=== PATIENT | female | born 1975 | race American Indian/Alaskan Native ===

== ENCOUNTER 2018-10-02 10:12 | Emergency (ER) | payer SELFPAY ==
[2018-10-02 10:44] VITALS: BP 151/92
[2018-10-02] MEDS ORDERED: NORCO 5/325 PO ONE (13:23)
--- NOTE | 2018-10-02 13:28 | Emergency Department Report ---
ED Laceration HPI - HPI Chief Complaint: Laceration/Recheck/Suture Stated Complaint: RT INDEX FINGER INJURY Time Seen by Provider: 10/02/18 12:19 Occurred When: Yesterday Location: Upper Extremity Severity: mild Tetanus Status: Up to Date Laceration Symptoms: Yes Pain, No Foreign Body Sensation, No Numbness, No Weakness Other History: 43-year-old -[place] female comes in with a laceration over her right second digit. It is sitting at the distal PIP. She did this yesterday on a piece a gas glass. She is neurologically intact. Rapid cap refill. Tetanus is up-to-date. ED Review of Systems ROS: Stated complaint: RT INDEX FINGER INJURY Other details as noted in HPI Comment: All other systems reviewed and negative Constitutional: denies: chills Eyes: denies: eye pain ENT: denies: ear pain Respiratory: denies: cough Cardiovascular: denies: chest pain Endocrine: denies: see HPI Gastrointestinal: denies: nausea Genitourinary: denies: as per HPI Musculoskeletal: as per HPI, other (finger lac) Skin: denies: lesions Neurological: denies: weakness Psychiatric: denies: depression Hematological/Lymphatic: denies: easy bleeding ED Past Medical Hx - Past Medical History Previous Medical History?: No - Surgical History Additional Surgical History: c sect x 4, right foot, partial hysterectomy - Social History Smoking Status: Never Smoker Substance Use Type: Alcohol Laceration Physical Exam - Exam General: Vital signs noted. No distress. Alert and acting appropriately. Laceration Location: Upper Extremity Laceration Exam: Yes Normal Distal CMS, No Foreign Body, No Exposed Tendon, Vessel, or Nerve, No Tendon Injury ED Course Vital Signs 10/02/18 10:41 Temperature 97.6 F Pulse Rate 74 Respiratory 16 Rate Blood Pressure 151/92 [Right] O2 Sat by Pulse 97 Oximetry ED Medical Decision Making - Medical Decision Making no fb clean no sutures needed wound care given closure obtained with dermabond and steri strips tdap is utd med for pain dc instructions reviewed - Differential Diagnosis lac Critical care attestation.: If time is entered above; I have spent that time in minutes in the direct care of this critically ill patient, excluding procedure time. ED Disposition Clinical Impression: Laceration Disposition: DC-01 TO HOME OR SELFCARE Is pt being admited?: No Does the pt Need Aspirin: No Condition: Stable Instructions: Laceration (ED) Additional Instructions: ice rest splint for 5 days motrin for pain diet as tolerated do not get finger wet until the wound heals Referrals: DAMARIS COOPER MD [Primary Care Provider] - 3-5 Days Time of Disposition: 13:33
[2018-10-02] MEDS ORDERED: NACL 0.9% IR ONE (14:00)
== END 2018-10-02 14:01 | disposition home or self-care (01) ==
LOC: ED 10:12
DX: S61.210A Laceration without foreign body of right index finger without damage to nail, initial encounter (principal); W25.XXXA Contact with sharp glass, initial encounter; Y93.89 Activity, other specified; Y99.8 Other external cause status; Y92.89 Other specified places as the place of occurrence of the external cause
CPT/HCPCS: 99282

== ENCOUNTER 2019-07-19 10:52 | Emergency (ER) | payer SELFPAY ==
[2019-07-19 11:02] VITALS: BP 169/108
== END 2019-07-19 13:00 | disposition left against medical advice (07) ==
LOC: ED 10:52
DX: I10 Essential (primary) hypertension (principal); Z53.21 Procedure and treatment not carried out due to patient leaving prior to being seen by health care provider

== ENCOUNTER 2021-11-21 06:37 | Emergency (ER) | payer SELFPAY ==
[2021-11-21] MEDS ORDERED: ASPIRIN 325 MG TAB PO ONE (07:23)
[2021-11-21] MEDS ORDERED: KETOROLAC 30 MG/1 ML INJ IV ONE (07:59)
[2021-11-21] MEDS ORDERED: hydroCHLOROthiazide 25 MG TAB PO ONE (08:01)
[2021-11-21] MEDS ORDERED: LISINOPRIL 20 MG TAB PO ONE (08:01)
--- NOTE | 2021-11-21 08:02 | XRay Report ---
CHEST 2 VIEWS, 11/21/2021 INDICATION: Chest pain COMPARISON: None FINDINGS: Support devices: None. Heart: The cardiac silhouette is normal in size. Lungs/pleura: Diffuse mildly prominent interstitial markings are noted bilaterally. There is no focal consolidation or pleural effusion. Additional findings: No significant acute abnormality. IMPRESSION: 1. Diffuse mildly prominent interstitial markings representing a nonspecific finding. Infectious or i nflammatory process should be considered. Mild vascular congestion could have a similar appearance. Signer Name: Ann Griffin MD Signed: 11/21/2021 7:58 AM Workstation Name: [id number]
--- NOTE | 2021-11-21 08:06 | Emergency Department Report ---
ED Chest Pain HPI - General Chief Complaint: Chest Pain Stated Complaint: CHEST PAIN Time Seen by Provider: 11/21/21 07:41 Source: patient Mode of arrival: Stretcher Limitations: No Limitations - History of Present Illness Initial Comments: 46-year-old female presents to the hospital complaining of elevated blood pressure, left neck pain, left shoulder pain, left arm pain with movement and palpation for the last 2 to 3 days. Pain is moderate to severe in intensity. No trauma, injury, or fever. Patient is right-hand dominant. Patient noticed that her blood pressure is also been uncontrolled during this time and thought that it might be the cause of her symptoms. She has been taking nitroglycerin intermittently with reduction in her blood pressure however, pain persists. Patient denies weakness, numbness, or lower extremity symptoms. She also has intermittent left parasternal chest pain worse with movement and certain directions. No calf tenderness no complaints of calf tenderness or leg edema. History negative stress test approximately 4 years ago. No previous cath. Patient was a previously heavy drinker and a smoker. She quit smoking and drinking 2 weeks ago Patient's medications include lisinopril 40 mg daily Hydrochlorothiazide 25 mg daily Prozac 60 mg every morning Seroquel 100 mg daily Hydroxyzine 25 mg as needed anxiety - Related Data Previous Rx's Medication Instructions Recorded Last Taken Type Amlodipine Besylate [Norvasc] 5 mg PO DAILY #30 tab 11/21/21 Unknown Rx Cyclobenzaprine [Flexeril] 10 mg PO TID PRN #20 11/21/21 Unknown Rx Ibuprofen [Motrin] 800 mg PO Q8HR PRN #30 tablet 11/21/21 Unknown Rx Allergies Allergy/AdvReac Type Severity Reaction Status Date / Time No Known Allergies Allergy Unverified 10/02/18 10:41 Heart Score - HEART Score History: Slightly suspicious EKG: Non-specific Age: 45-65 Risk factors: 1-2 risk factors Troponin: < normal limit HEART Score: 3 - EKG Read Time Time EKG Completed: 07:12 EKG Read Time: 07:15 ED Review of Systems ROS: Stated complaint: CHEST PAIN Other details as noted in HPI ED Past Medical Hx - Past Medical History Previous Medical History?: Yes Hx Hypertension: Yes Hx Psychiatric Treatment: Yes (PTSD) - Surgical History Past Surgical History?: Yes Additional Surgical History: c sect x 4, right foot, partial hysterectomy - Social History Smoking Status: Current Every Day Smoker Substance Use Type: None - Medications Home Medications: Home Medications Medication Instructions Recorded Confirmed Last Taken Type Amlodipine Besylate [Norvasc] 5 mg PO DAILY #30 tab 11/21/21 Unknown Rx Cyclobenzaprine [Flexeril] 10 mg PO TID PRN #20 11/21/21 Unknown Rx Ibuprofen [Motrin] 800 mg PO Q8HR PRN #30 tablet 11/21/21 Unknown Rx ED Physical Exam - General Limitations: No Limitations - Other Other exam information: General: No acute distress Head: Atraumatic Eyes: normal appearance ENT: Moist mucous membranes Neck: Normal appearance, no midline tenderness, left-sided trapezius muscle tenderness from the base of the neck extending to the shoulder. Chest: Clear to auscultation bilaterally CV: Regular rate and rhythm Abdomen: Soft, normal bowel sounds, nontender, nondistended, no rebound or guarding Back: Normal inspection Extremity: Normal inspection, full range of motion with passive movement. Pain with movement of shoulder. No deformity, warmth, erythema. Mild popping sound intimately with movement Neuro: Alert O x 3, no facial asymmetry, speech clear, no gross motor sensory deficit Psych: Appropriate behavior Skin: No rash ED Course Vital Signs 11/21/21 11/21/21 11/21/21 07:12 07:27 08:02 Temperature 98 F Pulse Rate 60 57 L 54 L Respiratory 18 16 Rate Blood Pressure 159/106 Blood Pressure 154/102 [Left] O2 Sat by Pulse 98 99 Oximetry 11/21/21 11/21/21 11/21/21 09:12 10:17 11:59 Temperature Pulse Rate 56 L 68 Respiratory 16 Rate Blood Pressure Blood Pressure 175/106 168/109 [Left] O2 Sat by Pulse 100 100 Oximetry HANNAH score - Hannah Score Age > 65: (0) No Aspirin use within the Past 7 Days: (1) Yes 3 or more CAD Risk Factors: (1) Yes 2 or more Angina events in past 24 hrs: (0) No Known CAD with more than 50% Stenosis: (0) No Elevated Cardiac Markers: (0) No ST Deviation Greater than 0.5mm: (0) No HANNAH Score: 2 ED Medical Decision Making - Lab Data Result diagrams: 11/21/21 08:02 11/21/21 08:01 Lab Results 11/21/21 11/21/21 11/21/21 Range/Units 08:01 08:02 09:34 WBC 9.6 (4.5-11.0) K/mm3 RBC 4.41 (3.65-5.03) M/mm3 Hgb 13.2 (10.1-14.3) gm/dl Hct 38.8 (30.3-42.9) % MCV 88 (79-97) fl MCH 30 (28-32) pg MCHC 34 (30-34) % RDW 13.6 (13.2-15.2) % Plt Count 311 (140-440) K/mm3 Lymph % (Auto) 33.0 (13.4-35.0) % Mcculloch % (Auto) 7.2 (0.0-7.3) % Eos % (Auto) 1.9 (0.0-4.3) % Baso % (Auto) 0.6 (0.0-1.8) % Lymph # (Auto) 3.2 (1.2-5.4) K/mm3 Mcculloch # (Auto) 0.7 (0.0-0.8) K/mm3 Eos # (Auto) 0.2 (0.0-0.4) K/mm3 Baso # (Auto) 0.1 (0.0-0.1) K/mm3 Seg Neutrophils % 57.3 (40.0-70.0) % Seg Neutrophils # 5.5 (1.8-7.7) K/mm3 D-Dimer 135.19 (0-234) ng/mlDDU Sodium 137 (137-145) mmol/L Potassium 4.4 (3.6-5.0) mmol/L Chloride 104.2 (98-107) mmol/L Carbon Dioxide 21 L (22-30) mmol/L Anion Gap 16 mmol/L BUN 21 H (7-17) mg/dL Creatinine 1.0 (0.6-1.2) mg/dL Estimated GFR > 60 ml/min BUN/Creatinine Ratio 21 % Glucose 96 (65-100) mg/dL Calcium 9.0 (8.4-10.2) mg/dL Total Bilirubin 0.30 (0.1-1.2) mg/dL AST 17 (5-40) units/L ALT 12 (7-56) units/L Alkaline Phosphatase 96 (35-129) units/L Troponin T < 0.010 (0.00-0.029) ng/mL NT-Pro-B Natriuret Pep 82.43 (0-450) pg/mL Total Protein 6.7 (6.3-8.2) g/dL Albumin 4.1 (3.9-5) g/dL Albumin/Globulin Ratio 1.6 % 11/21/21 Range/Units 11:38 WBC (4.5-11.0) K/mm3 RBC (3.65-5.03) M/mm3 Hgb (10.1-14.3) gm/dl Hct (30.3-42.9) % MCV (79-97) fl MCH (28-32) pg MCHC (30-34) % RDW (13.2-15.2) % Plt Count (140-440) K/mm3 Lymph % (Auto) (13.4-35.0) % Mcculloch % (Auto) (0.0-7.3) % Eos % (Auto) (0.0-4.3) % Baso % (Auto) (0.0-1.8) % Lymph # (Auto) (1.2-5.4) K/mm3 Mcculloch # (Auto) (0.0-0.8) K/mm3 Eos # (Auto) (0.0-0.4) K/mm3 Baso # (Auto) (0.0-0.1) K/mm3 Seg Neutrophils % (40.0-70.0) % Seg Neutrophils # (1.8-7.7) K/mm3 D-Dimer (0-234) ng/mlDDU Sodium (137-145) mmol/L Potassium (3.6-5.0) mmol/L Chloride (98-107) mmol/L Carbon Dioxide (22-30) mmol/L Anion Gap mmol/L BUN (7-17) mg/dL Creatinine (0.6-1.2) mg/dL Estimated GFR ml/min BUN/Creatinine Ratio % Glucose (65-100) mg/dL Calcium (8.4-10.2) mg/dL Total Bilirubin (0.1-1.2) mg/dL AST (5-40) units/L ALT (7-56) units/L Alkaline Phosphatase (35-129) units/L Troponin T < 0.010 (0.00-0.029) ng/mL NT-Pro-B Natriuret Pep (0-450) pg/mL Total Protein (6.3-8.2) g/dL Albumin (3.9-5) g/dL Albumin/Globulin Ratio % - EKG Data -: 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 Heart: The cardiac silhouette is normal in size. Lungs/pleura: Diffuse mildly prominent interstitial markings are noted bilaterally. There is no focal consolidation or pleural effusion. Additional findings: No significant acute abnormality. IMPRESSION: 1. Diffuse mildly prominent interstitial markings representing a nonspecific finding. Infectious or inflammatory process should be considered. Mild vascular congestion could have a similar appearance. - Medical Decision Making 46-year-old female presents to the hospital left shoulder pain which appears to be musculoskeletal in origin. Patient does not have associated cardiac symptoms, has EKG without signs of ischemia, troponin negative x2. Patient also presents with significantly elevated blood pressure despite medication compli ance. Low suspicion for dissection/PE given lack of pain radiation to the back, no widening of mediastinum on x-ray, and normal D-dimer. Patient denies trauma and has full passive range of motion of the left shoulder therefore fracture not suspected. I suspect arthritis versus inflammatory cause of left shoulder pain without signs of infection, leukocytosis, warmth, or fever. Patient treated symptomatically for pain with NSAIDs and morphine. Patient BP remain elevated despite her a.m. meds therefore Norvasc was added with some mild improvement. Critical Care Time: No Critical care attestation.: If time is entered above; I have spent that time in minutes in the direct care of this critically ill patient, excluding procedure time. ED Disposition Clinical Impression: Uncontrolled hypertension, Left shoulder pain, Strain of left trapezius muscle, Headache Disposition: HOME / SELF CARE / HOMELESS Is pt being admited?: No Does the pt Need Aspirin: No Condition: Stable Instructions: Hypertension (ED), Musculoskeletal Pain, Shoulder Pain, [id number], Managing Your Hypertension Additional Instructions: Take the medication as prescribed. Follow-up with your doctor or doctor/clinic provided. Return if symptoms worsen as indicated by your discharge instructions. Prescriptions: Cyclobenzaprine [Flexeril] 10 mg PO TID PRN #20 PRN Reason: Muscle Spasm Ibuprofen [Motrin] 800 mg PO Q8HR PRN #30 tablet PRN Reason: Pain , Severe (7-10) Amlodipine Besylate [Norvasc] 5 mg PO DAILY #30 tab Referrals: PRIMARY CARE, [Primary Care Provider] - 3-5 Days SANCHO AVIELZ MD [Staff Physician] - 3-5 Days (orthopedic ) Time of Disposition: 13:46
[2021-11-21 08:35] LABS: Basophils # (Auto) 0.1 K/mm3 (0.0-0.1); Basophils % (Auto) 0.6 % (0.0-1.8); Eosinophils # (Auto) 0.2 K/mm3 (0.0-0.4); Eosinophils % (Auto) 1.9 % (0.0-4.3); Hematocrit 38.8 % (30.3-42.9); Hemoglobin 13.2 gm/dl (10.1-14.3); Lymphocytes # (Auto) 3.2 K/mm3 (1.2-5.4); Mean Corpuscular HGB Conc 34 % (30-34); Mean Corpuscular Volume 88 fl (79-97); Monocytes # (Auto) 0.7 K/mm3 (0.0-0.8); Monocytes % (Auto) 7.2 % (0.0-7.3); Platelet Count 311 K/mm3 (140-440); Red Blood Count 4.41 M/mm3 (3.65-5.03); Red Cell Distribution Width 13.6 % (13.2-15.2)
[2021-11-21 08:53] LABS: Alanine Aminotransferase 12 units/L (7-56); Albumin 4.1 g/dL (3.9-5); BUN/Creatinine Ratio 21; Blood Urea Nitrogen 21 mg/dL (7-17); Hemolysis Index 51
[2021-11-21] MEDS ORDERED: MORPHINE 4 MG/1 ML INJ IV ONE (10:34)
[2021-11-21] MEDS ORDERED: ONDANSETRON 4 MG/2 ML INJ IV ONE (10:34)
--- NOTE | 2021-11-21 11:49 | Cat Scan Report ---
CT head/brain wo con INDICATION / CLINICAL INFORMATION: 46 years Female; headache, htn. TECHNIQUE: Routine CT head without contrast. All CT scans at this location are performed using CT dos e reduction for ALARA by means of automated exposure control. COMPARISON: None. FINDINGS: BRAIN / INTRACRANIAL CONTENTS: No acute hemorrhage, mass effect, midline shift, hydrocephalus, or acu te, large territorial infarct. No signs of significant atrophy or chronic infarct. No significant whi te matter abnormality seen. CRANIOCERVICAL JUNCTION: No significant abnormality. ORBITS: No significant abnormality of visualized orbits. SINUSES / MASTOIDS: Visualized paranasal sinuses and mastoid air cells are essentially clear. ADDITIONAL FINDINGS: None. IMPRESSION: 1. No focal mass, hemorrhage, hydrocephalus, or acute, large territorial infarct. Signer Name: Tristan Dickson MD, III Signed: 11/21/2021 11:45 AM Workstation Name: [email or web address]
[2021-11-21] MEDS ORDERED: amLODIPine 5 MG TAB PO ONE (12:02)
[2021-11-21 14:05] VITALS: BP 156/100
--- NOTE | 2021-11-22 09:01 | Electrocardiograph Report ---
[facility] Test Date: 2021-11-21 Test Time: 07:12:16 Pat Name: ARCELIA BERRIOS Department: Room: Gender: F Night Filler: FRANCO : 1975 Requested By: ED DOC Order Number: [id number] Reading MD: Ilir Villarreal Measurements Intervals [place] Rate: 57 P: 34 ID: [id number] QRS: 24 QRSD: 82 T: 36 QT: 466 QTc: 453 Interpretive Statements Sinus bradycardia POSSIBLE Anterior infarct, old No previous ECG available for comparison Electronically Signed On 11-22-2021 9:01:47 EDT by Ilir Villarreal
== END 2021-11-21 14:04 | disposition home or self-care (01) ==
LOC: ED 06:37
DX: S46.812A Strain of other muscles, fascia and tendons at shoulder and upper arm level, left arm, initial encounter (principal); I10 Essential (primary) hypertension; F17.200 Nicotine dependence, unspecified, uncomplicated; R51.9 Headache, unspecified; Z79.899 Other long term (current) drug therapy; X58.XXXA Exposure to other specified factors, initial encounter; Y93.89 Activity, other specified; Y92.89 Other specified places as the place of occurrence of the external cause; Y99.8 Other external cause status
CPT/HCPCS: 36415; 70450; 71046; 80053; 83880; 84484; 85025; 85379; 93005; 96374; 96375; 99285; J1885; J2270; J2405

== ENCOUNTER 2022-03-19 14:06 | Emergency (ER) | payer SELFPAY ==
[2022-03-19] MEDS ORDERED: ACETAMINOPHEN 325 MG TAB PO ONE (15:47)
[2022-03-19 16:35] LABS: Hematocrit 40.4 % (30.3-42.9); Hemoglobin 13.9 gm/dl (10.1-14.3); Mean Corpuscular HGB Conc 34 % (30-34); Mean Corpuscular Volume 89 fl (79-97); Platelet Count 279 K/mm3 (140-440); Red Blood Count 4.52 M/mm3 (3.65-5.03); Red Cell Distribution Width 13.7 % (13.2-15.2)
[2022-03-19 16:56] LABS: Alanine Aminotransferase 17 units/L (7-56); Albumin 4.1 g/dL (3.9-5); BUN/Creatinine Ratio 11; Blood Urea Nitrogen 10 mg/dL (7-17); Calcium 9.3 mg/dL (8.4-10.2); Hemolysis Index 125
[2022-03-19 18:06] LABS: Band Neutrophils # (Manual) 0.2 K/mm3; Basophils % (Manual) 0 % (0.0-1.8); Eosinophils % (Manual) 0 % (0.0-4.3); Total Cells Counted 100
[2022-03-19 18:07] LABS: Large Platelets Few; Platelet Estimate Consistent w Auto
[2022-03-20] MEDS ORDERED: ONDANSETRON 4 MG/2 ML INJ IV ONE (02:19)
[2022-03-20] MEDS ORDERED: SODIUM CHLORIDE 0.9% 1000 ML 1,000 ML IV ONE (02:19)
[2022-03-20] MEDS ORDERED: KETOROLAC 30 MG/1 ML INJ IV ONE (02:19)
--- NOTE | 2022-03-20 02:25 | Emergency Department Report ---
ED Abdominal Pain HPI - General Chief Complaint: Abdominal Pain Stated Complaint: KIDNEY STONE/FEVER/VOMITING Time Seen by Provider: 03/20/22 02:04 Source: patient Mode of arrival: Ambulatory Limitations: No Limitations - History of Present Illness Initial Comments: 46-year-old female with a history of kidney stone who presents with left flank pain that started about 2 to 3 days ago progressively getting worse. Patient denies any fever or chills. Patient also mention nausea and nonbloody emesis for the last 2 days. She says she cannot tolerate any fluid or food. Patient have had total hysterectomy. No other modifying or associated factors reported. MD Complaint: flank pain Severity scale (0 -10): 7 - Related Data Previous Rx's Medication Instructions Recorded Last Taken Type Amlodipine Besylate [Norvasc] 5 mg PO DAILY #30 tab 11/21/21 Unknown Rx Cyclobenzaprine [Flexeril] 10 mg PO TID PRN #20 11/21/21 Unknown Rx Ibuprofen [Motrin] 800 mg PO Q8HR PRN #30 tablet 11/21/21 Unknown Rx Ketorolac [Toradol] 10 mg PO Q4HR PRN 6 Days #24 03/20/22 Unknown Rx tablet NS Ondansetron (Nf) [Zofran TAB] 8 mg PO Q8HR PRN 5 Days #15 tablet 03/20/22 Unknown Rx NS cephALEXin [Keflex] 500 mg PO Q12HR 10 Days #20 cap NS 03/20/22 Unknown Rx Allergies Allergy/AdvReac Type Severity Reaction Status Date / Time No Known Allergies Allergy Verified 03/20/22 02:06 ED Review of Systems ROS: Stated complaint: KIDNEY STONE/FEVER/VOMITING Other details as noted in HPI Comment: All other systems reviewed and negative Gastrointestinal: abdominal pain, nausea, vomiting, other (left flank pain ) ED Past Medical Hx - Past Medical History Previous Medical History?: Yes Hx Hypertension: Yes Hx Psychiatric Treatment: Yes (PTSD) - Surgical History Additional Surgical History: c sect x 4, right foot, partial hysterectomy - Social History Smoking Status: Current Every Day Smoker Substance Use Type: None - Medications Home Medications: Home Medications Medication Instructions Recorded Confirmed Last Taken Type Amlodipine Besylate [Norvasc] 5 mg PO DAILY #30 tab 11/21/21 Unknown Rx Cyclobenzaprine [Flexeril] 10 mg PO TID PRN #20 11/21/21 Unknown Rx Ibuprofen [Motrin] 800 mg PO Q8HR PRN #30 tablet 11/21/21 Unknown Rx Ketorolac [Toradol] 10 mg PO Q4HR PRN 6 Days #24 03/20/22 Unknown Rx tablet NS Ondansetron (Nf) [Zofran TAB] 8 mg PO Q8HR PRN 5 Days #15 tablet 03/20/22 Unknown Rx NS cephALEXin [Keflex] 500 mg PO Q12HR 10 Days #20 cap NS 03/20/22 Unknown Rx ED Physical Exam - General Limitations: No Limitations General appearance: alert, in no apparent distress - Head Head exam: Present: normal inspection - Eye Eye exam: Present: normal appearance Pupils: Present: normal accommodation - ENT ENT exam: Present: normal exam, normal orophraynx, mucous membranes dry - Neck Neck exam: Present: normal inspection, full ROM. Absent: tenderness - Respiratory Respiratory exam: Present: normal lung sounds bilaterally. Absent: respiratory distress, accessory muscle use - Cardiovascular Cardiovascular Exam: Present: regular rate, normal rhythm, normal heart sounds - GI/Abdominal GI/Abdominal exam: Present: soft, tenderness (left lower abdomen ), normal bowel sounds. Absent: distended - Extremities Exam Extremities exam: Present: normal inspection, normal capillary refill. Absent: pedal edema - Back Exam Back exam: Present: normal inspection, tenderness (left flank ), CVA tenderness (L) - Neurological Exam Neurological exam: Present: alert, oriented X3 - Psychiatric Psychiatric exam: Present: normal affect, normal mood - Skin Skin exam: Present: warm, normal color ED Course Vital Signs 03/19/22 03/20/22 03/20/22 14:10 01:15 03:00 Temperature 98.9 F 98.7 F Pulse Rate 109 H 83 Respiratory 18 22 18 Rate Blood Pressure 174/116 131/52 [Left] O2 Sat by Pulse 99 98 Oximetry 03/20/22 03:07 Temperature Pulse Rate Respiratory 18 Rate Blood Pressure [Left] O2 Sat by Pulse Oximetry ED Medical Decision Making - Lab Data Result diagrams: 03/19/22 16:16 03/19/22 16:16 - Radiology Data FINDINGS: LOWER CHEST: Bibasilar atelectasis is seen without other significant abnormalities. LIVER: No significant abnormality. GALLBLADDER: No significant abnormality. BILE DUCTS: No significant abnormality. PANCREAS: No significant abnormality. SPLEEN: No significant abnormality. ADRENALS: No significant abnormality. RIGHT KIDNEY/URETER: No significant abnormality. LEFT KIDNEY/URETER: Multiple nonobstructive stones are seen along the upper pole measuring up to 1.7 cm. No ureteral stones or other significant abnormalities. A probable phlebolith is seen in close proximity to the distal third of the left ureter on image 122 of series 2. There is mild left perinephric fat stranding. No other significant abnormality. STOMACH/SMALL BOWEL: No significant abnormality. COLON: No significant abnormality. APPENDIX: No significant abnormality. PERITONEUM: No free fluid. No free air. No fluid collection. LYMPH NODES: No significant adenopathy. VASCULATURE: There is mild atherosclerosis without other significant abnormalities. URINARY BLADDER: No significant abnormality. REPRODUCTIVE ORGANS: No significant abnormality. ADDITIONAL FINDINGS: None. BONES: No significant abnormality IMPRESSION: 1. Nonobstructive left renal stones with nonspecific mild left perinephric fat stranding. 2. Additional findings as above. - Medical Decision Making Here with left flank pain that started 2 to 3 days ago progressively getting worse--with this patient history of renal calculi this is likely an episode however could not rule out any other intra-abdominal inflammation or infection such as appendicitis, gastroenteritis, diverticulosis versus diverticulitis, ovarian cyst, or urinary tract infection. And because of this we will go ahead and order routine labs including CBC, CMP, UA, with lipase and get a CT scan of the abdomen/pelvic without contrast to rule out all of the above. In the meantime will give Toradol 30 mg IV x 1 and ivf ns 1L bolus x 1 with zofran 4 mg IV x 1 for symptomatic relief -- UA shows positive urine leukocytes with nitrites -- consistent with UTI-- will d/c home on keflex x 10 days Critical care attestation.: If time is entered above; I have spent that time in minutes in the direct care of this critically ill patient, excluding procedure time. ED Disposition Clinical Impression: Acute left flank pain, Renal calculus, left UTI (urinary tract infection) Qualifiers: Urinary tract infection type: site unspecified Hematuria presence: without hematuria Qualified Code(s): N39.0 - Urinary tract infection, site not specified Disposition: 01 HOME / SELF CARE / HOMELESS Is pt being admited?: No Does the pt Need Aspirin: No Condition: Stable Instructions: Kidney Stones, [id number], Flank Pain, Adult, [id number], Abdominal Pain (ED), Urinary Tract Infection, Adult, [id number] Additional Instructions: Take your pain medication and antibiotics as prescribed Increase your daily fluid to help your hydration Call and follow up with your doctor in the next 3-5 days for progress Please do not hesitate to call or return to ED if your symptoms worsen Prescriptions: cephALEXin [Keflex] 500 mg PO Q12HR 10 Days #20 cap NS Ketorolac [Toradol] 10 mg PO Q4HR PRN 6 Days #24 tablet NS PRN Reason: Pain Ondansetron (Nf) [Zofran TAB] 8 mg PO Q8HR PRN 5 Days #15 tablet NS PRN Reason: Nausea Referrals: UMM ROBERTS MD [Primary Care Provider] - 3-5 Days Time of Disposition: 04:01
--- NOTE | 2022-03-20 03:08 | Cat Scan Report ---
CT ABDOMEN AND PELVIS WITHOUT CONTRAST INDICATION / CLINICAL INFORMATION: left flank with h/o renal calculus. TECHNIQUE: Axial CT images were obtained through the abdomen and pelvis without IV contrast. All CT scans at [facility] location are performed using CT dose reduction for ALARA by means of automated exposure control. COMPARISON: None available. FINDINGS: LOWER CHEST: Bibasilar atelectasis is seen without other significant abnormalities. LIVER: No significant abnormality. GALLBLADDER: No significant abnormality. BILE DUCTS: No significant abnormality. PANCREAS: No significant abnormality. SPLEEN: No significant abnormality. ADRENALS: No significant abnormality. RIGHT KIDNEY/URETER: No significant abnormality. LEFT KIDNEY/URETER: Multiple nonobstructive stones are seen along the upper pole measuring up to 1.7 cm. No ureteral stones or other significant abnormalities. A probable phlebolith is seen in close pro ximity to the distal third of the left ureter on image 122 of series 2. There is mild left perinephri c fat stranding. No other significant abnormality. STOMACH/SMALL BOWEL: No significant abnormality. COLON: No significant abnormality. APPENDIX: No significant abnormality. PERITONEUM: No free fluid. No free air. No fluid collection. LYMPH NODES: No significant adenopathy. VASCULATURE: There is mild atherosclerosis without other significant abnormalities. URINARY BLADDER: No significant abnormality. REPRODUCTIVE ORGANS: No significant abnormality. ADDITIONAL FINDINGS: None. BONES: No significant abnormality IMPRESSION: 1. Nonobstructive left renal stones with nonspecific mild left perinephric fat stranding. 2. Additional findings as above. Signer Name: Mark Caceres MD Signed: 03/20/2022 3:04 AM Workstation Name: [id number]
[2022-03-20 04:37] LABS: Bacteria,Urine 3+ /HPF (Negative); Mucus,Urine FEW /HPF
[2022-03-20 04:39] LABS: Color,Urine Yellow (Yellow); WBC,Urine > 182.0 /HPF (0.0-6.0)
[2022-03-20 04:40] LABS: Bilirubin,Urine Negative (Negative); Blood,Urine Large (Negative); Protein,Urine 300 mg/dL mg/dL (Negative)
[2022-03-20 06:25] VITALS: BP 107/53
== END 2022-03-20 05:40 | disposition home or self-care (01) ==
LOC: ED 14:06
DX: N39.0 Urinary tract infection, site not specified (principal); R10.9 Unspecified abdominal pain; N20.0 Calculus of kidney; I10 Essential (primary) hypertension; F17.200 Nicotine dependence, unspecified, uncomplicated; Z79.899 Other long term (current) drug therapy
CPT/HCPCS: 36415; 74176; 80053; 81001; 83690; 85007; 85025; 96361; 96374; 96375; 99284; J1885; J2405; J7030